=== PATIENT | male | born 1955 | race Caucasian/White ===

== ENCOUNTER → 2017-01-22 | Outpatient (CLI) | payer OTHER ==
--- NOTE | 2017-01-22 08:09 | DIAGNOSTIC IMAGING REPORT ---
ABDOMINAL ULTRASOUND, RIGHT UPPER QUADRANT HISTORY: ELEVATED Amylase, lipase. COMPARISON: None. FINDINGS: Pancreas: The pancreatic head and tail are obscured by overlying bowel gas. The remaining portions of the pancreas are within normal limits. Liver: The liver is echogenic consistent with fatty change. Gallbladder: No gallbladder wall thickening. No gallstones. CBD: 5 mm. Right kidney: No hydronephrosis. A 1.9 cm cyst within the upper pole which demonstrates peripheral calcification. There appears be a small cyst within the lower pole. IMPRESSION: 1. Normal gallbladder. No gallstones. 2. Hepatic steatosis. 3. The pancreas is only partially visualized but appears unremarkable. 4. A 1.9 cm peripherally calcified right renal cyst. Electronically signed by: Elvis Galdamez M.D. 01/22/2017 8:08 AM Dictated Date/Time: 01/22/2017 8:06 AM
== END | disposition home or self-care (01) ==
LOC: C.ULTRBC 07:42
PROVIDERS: ATTEND Family Medicine
DX: R74.8 Abnormal levels of other serum enzymes (principal); K76.0 Fatty (change of) liver, not elsewhere classified; N28.1 Cyst of kidney, acquired

== ENCOUNTER → 2017-04-19 | Outpatient (CLI) | payer OTHER ==
[~2017-04-19] MED LIST: OPTIRAY 320 IV PRN
--- NOTE | 2017-04-19 08:16 | DIAGNOSTIC IMAGING REPORT ---
CT OF THE ABDOMEN WITH AND WITHOUT CONTRAST PANCREAS PROTOCOL CT DOSE: 3200.71 mGy.cm CLINICAL HISTORY: Elevated lipase. TECHNIQUE: Unenhanced, arterial and venous phase imaging of the abdomen was performed. Injection of 91 cc of Optiray 320 IV was uneventful. Oral contrast was administered. COMPARISON STUDY: Right upper quadrant ultrasound January 22, 2017. FINDINGS: Fatty infiltration of the liver is noted. There are no hepatic lesions. There is no biliary or pancreatic ductal dilatation. No pancreatic mass is present. There is no peripancreatic infiltration. There are no peripancreatic fluid collections. The spleen and adrenal glands are normal. There is a with 2 cm cyst within the upper pole of the right kidney. There are a few subcentimeter bilateral renal lesions which are too small to characterize. No abdominal lymphadenopathy is present. Caliber of visualized small and large bowel are normal. IMPRESSION: 1. No acute process within the abdomen. Normal CT appearance of the pancreas. 2. Fatty liver. 3. 2 cm right renal cyst and several subcentimeter renal lesions which are too small to characterize. Electronically signed by: Lalo Sánchez M.D. 04/19/2017 8:15 AM Dictated Date/Time: 04/19/2017 7:59 AM
== END | disposition home or self-care (01) ==
LOC: C.CTS 06:55
PROVIDERS: ATTEND Family Medicine
DX: R74.8 Abnormal levels of other serum enzymes (principal)

== ENCOUNTER 2023-02-19 11:07 | Inpatient (IN) ==
--- NOTE | 2023-02-19 11:39 | Electrocardiogram Report ---
Test Reason : Blood Pressure : / mmHG Vent. Rate : 073 BPM Atrial Rate : 073 BPM P-R Int : 188 ms QRS Dur : 112 ms QT Int : 418 ms P-R-T Axes : 002 -45 091 degrees QTc Int : 460 ms Normal sinus rhythm Left anterior fascicular block Poor R wave progression, consider anterior CO vs. lead placement vs. LVH Abnormal ECG No previous ECGs available Confirmed by Asim Sullivan ([id number]) on 02/19/2023 11:38:53 AM Referred By: Confirmed By:Serafin Sullivan
--- NOTE | 2023-02-19 12:21 | XRay Report ---
XR chest 1V not portable CLINICAL HISTORY: Chest pain, nonspecific TECHNIQUE: Single frontal radiograph of the chest was obtained. Comparison: Comparison is made to chest radiograph 12/28/2022 FINDINGS: No lines and tubes are seen. Cardiomegaly is noted. Faint bibasilar airspace opacities are seen. No e vidence of pleural effusion or pneumothorax. IMPRESSION: Faint bibasilar airspace opacities which may represent atelectasis, pneumonia, and/or aspiration. Mil d cardiomegaly is seen. ACT 112: Negative or not required by law. Electronically signed by: Nahum Guallpa M.D. 02/19/2023 12:20 PM
[2023-02-19 12:36] LABS: Basophils # (auto) 0.02 K/uL (0-0.2); Basophils % (auto) 0.3 %; Eosinophils # (auto) 0.11 K/uL (0-0.50); Eosinophils % (auto) 1.5 %; Hematocrit (blood only) 42.3 % (42.0-52.0); Hemoglobin 14.7 g/dl (14.0-18.0); Immature Granulocytes # (auto) 0.02 K/uL (0.01-0.20); Immature Granulocytes % (auto) 0.3 %; Lymphocytes % (auto) 30.8 %; Mean Corpuscular Hemoglobin 29.6 pg (25.0-34.0); Mean Corpuscular Hgb Conc 34.8 g/dL (32.0-36.0); Mean Corpuscular Volume 85.3 fL (80.0-100.0); Mean Platelet Volume 11.5 fL (9.4-12.4); Monocytes % (auto) 9.4 %; Neutrophils # (auto) 4.32 K/uL (1.40-6.50); Neutrophils % (auto) 57.7 %; Platelet Count 197 K/uL (130-400); RDW Coefficient of Variation 12.7 % (11.5-14.5); RDW Standard Deviation 38.5 fL (36.4-46.3); Red Blood Count 4.96 M/uL (4.70-6.10); White Blood Count 7.47 K/ul (4.8-10.8)
[2023-02-19 12:41] LABS: Albumin Globulin Ratio 1.4 (0.9-2); Albumin Level 4.2 gm/dl (3.4-5.0); BUN Creatinine Ratio 17.1 (10-20); Bilirubin,Total 0.7 mg/dl (0.2-1.0); Calcium 9.1 mg/dl (8.6-10.3); Creatinine Clr Calc Pharmacy 137.5 ml/min; Est GFR (African American) 110.2 ml/min; Est GFR (Non-African American) 95.1 ml/min; Globulin 3.1 gm/dl (2.5-4.0); Potassium 3.6 mmol/L (3.5-5.1); Total Protein 7.3 gm/dl (6.0-8.3)
[2023-02-19 13:01] LABS: INR 1.1 (0.9-1.1); Partial Thromboplastin Ratio 0.9; Prothrombin Time 11.2 Seconds (9.0-12.0)
[2023-02-19 13:15] LABS: Magnesium 1.7 mg/dl (1.7-2.4)
[2023-02-19] MEDS ORDERED: lisinopril 40 MG TAB PO STA (13:16)
--- NOTE | 2023-02-19 13:19 | Emergency Department Note ---
Impression & Plan Dyspnea, Bilateral edema of lower extremity, Symptomatic bradycardia, Hypertension, Hyperglycemia ED Provider Note ED Provider Note NAME: JANES FERGUSON AGE:68 SEX: Male : 1955 ARRIVES VIA: Private vehicle INFORMANT: Patient ED PROVIDER(s): Kasey Jackson DO CHIEF COMPLAINT: Worsening shortness of breath, leg swelling HPI: This is a 68-year-old male presents emergency department due to worsening shortness of breath over the last 6 to 8 weeks, increased leg swelling, despite outpatient evaluation. Patient states his PCP did send him for a stress test when he first began complaining of feeling short of breath which was reported to him as negative. He states he does have high blood pressure. He has been unable to sleep in bed as he cannot lay flat and so he has been sleeping in a recliner. He states he also notices worsening shortness of breath with any exertion. He feels generally speaking his breathing symptoms have all been worsening in the last 6 weeks. He states he has had worsening leg swelling as well. He denies any history of heart problems, denies any history of kidney problems. He states he has been taking his medications as prescribed. He states his family doctor also scheduled him to have a sleep study. PAST MEDICAL HISTORY:See Below PAST SURGICAL HISTORY:See Below FAMILY HISTORY:See Below SOCIAL HISTORY:See Below HOME MEDICATIONS:See Below ALLERGIES:See Below VITALS:See Below PHYSICAL EXAMINATION: GENERAL: alert, well appearing, well nourished, no distress, non-toxic, BMI>48 EYE EXAM: normal conjunctiva, PERRL and EOM's grossly intact OROPHARYNX: no exudate, no erythema, lips, buccal mucosa, and tongue normal and mucous membranes are moist NECK: supple, no nuchal rigidity, no adenopathy, non-tender LUNGS: Clear to auscultation. Normal chest wall mechanics, no w/r/r HEART: no murmurs, S1 normal and S2 normal ABDOMEN: abdomen soft, non-tender, normo-active bowel sounds, no masses, no rebound or guarding. BACK: Back is symmetrical on inspection and there is no deformity, no midline tenderness, no CVA tenderness. SKIN: no rashes, petechiae, orbruising UPPER EXTREMITIES: upper extremities are grossly normal. FROM, nml pulses b/l. LOWER EXTREMITIES: 2+ b/l pitting edema. FROM, nml pulses b/l. NEURO EXAM: Normal sensorium, cranial nerves II-XII grossly intact, normal speech, no facial droop,nogross weakness of arms, no gross weakness of legs. Gross sensation intact. No ataxia. Vital Signs: reviewed and remarkable Differential Diagnosis: CHF, pulmonary edema, LUCIANA, nephrotic syndrome, DVT, lymphedema, electrolyte abnormality, URI, ACS, PE, as well as others were considered MEDICAL DECISION MAKING: This is a 68-year-old male presents to the emergency department due to concern for increased shortness of breath and lower extremity edema. Patient afebrile initial vital signs stable, however when I entered the room patient noted to have bradycardia in the 30s and low 40s. Patient denies any prior cardiac history. Labs drawn and sent, IV established, and serial EKGs performed. Chest x-ray performed and interpreted by me. We were able to obtain records from patient's recent outpatient evaluation including stress test. Chest x-ray here not convincing for pulmonary edema, although patient was recent evolving symptoms suggestive of possible evolving CHF. Patient did not take any of his medications this morning and was noted to be significantly hypertensive. No evidence of LUCIANA on labs. Due to concern for worsening dyspnea and decreased exercise tolerance, symptomatic bradycardia, case discussed with hospitalist for additional evaluation and management. Consultation(s): 1302: Discussed with Dr. Fairbanks, [facility] hospitalist service. ER Treatment Provided: See below Diagnostics Interpreted By Me: -ECG 1: Normal sinus rhythm at 73, leftward axis, normal QRS and QTc, T wave inversions noted in aVL, no other acute ischemic changes EKG 2: Sinus bradycardia at 63 with Arrhythmia noted, left axis deviation, normal QRS and QTc, no acute ischemic changes EKG 3: Sinus bradycardia at 37, leftward axis, normal QRS and QTc, inverted T waves noted in 1, aVL, no other ischemic changes noted -Cardiac Monitoring: An order was placed for continuous cardiac monitoring. The monitor shows a rate of 47 with sinus bradycardia rhythm. -Laboratory studies: As stated above and show below. -Imaging studies: X-ray Chest: A single view study of the chest was reviewed and was negative for cardiomegaly, focal infiltrate, effusion, pulmonary edema, or wide mediastinum. Triage Nursing Note Reviewed Prior/Outside Records Reviewed -outpatient stress test results and office note from PCP reviewed Past Med/Surg History Medical History Hypertension Obesity, morbid, BMI 40.0-49.9 Uncontrolled type 2 diabetes mellitus with hyperglycemia Family History Father Diabetes Pancreatic cancer Mother Hypertension Multiple myeloma Brother Stroke with brain aneurysm Sister Lymphoma Social History Smoking Status: Former smoker Feels Safe at Home: Yes Allergies Allergies Allergy/AdvReac Type Severity Reaction Status Date / Time No Known Allergies Allergy Unverified 01/07/23 13:31 Home Meds Home Medications Medication Instructions Recorded Confirmed insulin glargine 100 unit/mL (3 See Rx Instructions subcut DAILY 12/25/22 02/19/23 mL) subcutaneous pen (Lantus Solostar U-100 Insulin) lisinopril 40 mg tablet 40 mg PO DAILY 12/25/22 02/19/23 propranolol 20 mg tablet 20 mg PO BID 12/25/22 02/19/23 simvastatin 40 mg tablet 40 mg PO HS 12/25/22 02/19/23 aspirin 81 mg chewable tablet 81 mg PO DAILY 01/07/23 02/19/23 multivitamin 1 tab PO DAILY 01/07/23 02/19/23 furosemide 20 mg tablet 10 mg PO DAILY 02/19/23 02/19/23 Previous Rx's Medication Instructions Recorded tirzepatide 2.5 mg/0.5 mL 2.5 mg (0.5 mL) subcut Q7D #4 pens 02/04/23 subcutaneous pen injector (Charleen) Results & Data (ED) Vital Signs Vital Signs - 24 hr 02/19/23 11:07 02/19/23 12:20 02/19/23 12:20 Temperature 36.1 C L Temperature Source Temporal Artery Scan Pulse Rate 75 60 Pulse Rate [Finger] 69 Pulse Rate from SpO2 Sensor Respiratory Rate 20 18 20 Respiratory Effort / Characteristics Non-Labored Spontaneous Respiratory Depth Normal Blood Pressure 224/95 H 229/108 H Blood Pressure [Left Arm] 229/108 H Blood Pressure Mean 138 148 Blood Pressure Mean [Left Arm] 148 Pulse Oximetry 95 95 96 Oxygen Delivery Method Room Air Room Air Sepsis Recent Fever Within 48 Hours No Sepsis New/Unexplained Change in Mental Status No Sepsis Action Taken by Nursing No Action Required 02/19/23 12:20 02/19/23 12:56 02/19/23 12:52 Temperature Temperature Source Pulse Rate 62 70 Pulse Rate [Finger] Pulse Rate from SpO2 Sensor 72 Respiratory Rate 18 Respiratory Effort / Characteristics Respiratory Depth Blood Pressure Blood Pressure [Left Arm] Blood Pressure Mean Blood Pressure Mean [Left Arm] Pulse Oximetry 95 Oxygen Delivery Method Room Air Sepsis Recent Fever Within 48 Hours Sepsis New/Unexplained Change in Mental Status Sepsis Action Taken by Nursing 02/19/23 13:00 02/19/23 13:00 02/19/23 13:10 Temperature Temperature Source Pulse Rate 62 70 Pulse Rate [Finger] Pulse Rate from SpO2 Sensor 65 61 Respiratory Rate 15 22 Respiratory Effort / Characteristics Respiratory Depth Blood Pressure 190/102 H Blood Pressure [Left Arm] Blood Pressure Mean 131 Blood Pressure Mean [Left Arm] Pulse Oximetry 96 96 Oxygen Delivery Method Sepsis Recent Fever Within 48 Hours Sepsis New/Unexplained Change in Mental Status Sepsis Action Taken by Nursing Laboratory Data 02/19/23 11:25 02/19/23 11:25 Lab Results 02/19/23 02/19/23 02/19/23 Range/Units 11:25 11:25 11:25 WBC 7.47 (4.8-10.8) K/ul RBC 4.96 (4.70-6.10) M/uL Hgb 14.7 (14.0-18.0) g/dl Hct 42.3 (42.0-52.0) % MCV 85.3 (80.0-100.0) fL MCH 29.6 (25.0-34.0) pg MCHC 34.8 (32.0-36.0) g/dL RDW Std Deviation 38.5 (36.4-46.3) fL RDW Coeff of Dipesh 12.7 (11.5-14.5) % Plt Count 197 (130-400) K/uL MPV 11.5 (9.4-12.4) fL Immature Gran % (Auto) 0.3 % Neut % (Auto) 57.7 % Lymph % (Auto) 30.8 % [place] % (Auto) 9.4 % Eos % (Auto) 1.5 % Baso % (Auto) 0.3 % Neut # (Auto) 4.32 (1.40-6.50) K/uL Lymph # (Auto) 2.30 (1.2-3.4) K/uL [place] # (Auto) 0.70 H (0.11-0.59) K/uL Eos # (Auto) 0.11 (0-0.50) K/uL Baso # (Auto) 0.02 (0-0.2) K/uL Immature Gran # (Auto) 0.02 (0.01-0.20) K/uL PT 11.2 (9.0-12.0) Seconds INR 1.1 (0.9-1.1) APTT 25.0 (21.0-31.0) Seconds PTT Ratio 0.9 D-Dimer (0-500) ug/L FEU Sodium 139 (136-145) mmol/L Potassium 3.6 (3.5-5.1) mmol/L Chloride 104 (98-107) mmol/L Carbon Dioxide 27 (21-32) mmol/L Anion Gap 8 (3-11) BUN 13 (6-23) mg/dl Creatinine 0.76 (0.6-1.4) mg/dl Est Cr Clr Drug Dosing 137.5 ml/min Est GFR ( Amer) 110.2 ml/min Est GFR (Non-Af Amer) 95.1 ml/min BUN/Creatinine Ratio 17.1 (10-20) Glucose 246 H (70-99(Fasting)) mg/dl Calcium 9.1 (8.6-10.3) mg/dl Magnesium 1.7 (1.7-2.4) mg/dl Total Bilirubin 0.7 (0.2-1.0) mg/dl AST 19 (13-39) U/L ALT 25 (7-52) U/L Alkaline Phosphatase 52 (34-104) U/L Troponin I High Sens 4.0 (0-20) pg/ml B-Natriuretic Peptide (0-100) pg/ml Total Protein 7.3 (6.0-8.3) gm/dl Albumin 4.2 (3.4-5.0) gm/dl Globulin 3.1 (2.5-4.0) gm/dl Albumin/Globulin Ratio 1.4 (0.9-2) TSH (0.300-4.500) uIu/ml Lyme Disease IgG Ab Lyme Disease IgM Ab 02/19/23 02/19/23 02/19/23 Range/Units 11:25 11:25 11:25 WBC (4.8-10.8) K/ul RBC (4.70-6.10) M/uL Hgb (14.0-18.0) g/dl Hct (42.0-52.0) % MCV (80.0-100.0) fL MCH (25.0-34.0) pg MCHC (32.0-36.0) g/dL RDW Std Deviation (36.4-46.3) fL RDW Coeff of Dipesh (11.5-14.5) % Plt Count (130-400) K/uL MPV (9.4-12.4) fL Immature Gran % (Auto) % Neut % (Auto) % Lymph % (Auto) % [place] % (Auto) % Eos % (Auto) % Baso % (Auto) % Neut # (Auto) (1.40-6.50) K/uL Lymph # (Auto) (1.2-3.4) K/uL [place] # (Auto) (0.11-0.59) K/uL Eos # (Auto) (0-0.50) K/uL Baso # (Auto) (0-0.2) K/uL Immature Gran # (Auto) (0.01-0.20) K/uL PT (9.0-12.0) Seconds INR (0.9-1.1) APTT (21.0-31.0) Seconds PTT Ratio D-Dimer (0-500) ug/L FEU Sodium (136-145) mmol/L Potassium (3.5-5.1) mmol/L Chloride (98-107) mmol/L Carbon Dioxide (21-32) mmol/L Anion Gap (3-11) BUN (6-23) mg/dl Creatinine (0.6-1.4) mg/dl Est Cr Clr Drug Dosing ml/min Est GFR ( Amer) ml/min Est GFR (Non-Af Amer) ml/min BUN/Creatinine Ratio (10-20) Glucose (70-99(Fasting)) mg/dl Calcium (8.6-10.3) mg/dl Magnesium (1.7-2.4) mg/dl Total Bilirubin (0.2-1.0) mg/dl AST (13-39) U/L ALT (7-52) U/L Alkaline Phosphatase (34-104) U/L Troponin I High Sens (0-20) pg/ml B-Natriuretic Peptide 182 H (0-100) pg/ml Total Protein (6.0-8.3) gm/dl Albumin (3.4-5.0) gm/dl Globulin (2.5-4.0) gm/dl Albumin/Globulin Ratio (0.9-2) TSH 1.744 (0.300-4.500) uIu/ml Lyme Disease IgG Ab Cancelled Lyme Disease IgM Ab Cancelled 02/19/23 02/19/23 Range/Units 11:25 11:25 WBC (4.8-10.8) K/ul RBC (4.70-6.10) M/uL Hgb (14.0-18.0) g/dl Hct (42.0-52.0) % MCV (80.0-100.0) fL MCH (25.0-34.0) pg MCHC (32.0-36.0) g/dL RDW Std Deviation (36.4-46.3) fL RDW Coeff of Dipesh (11.5-14.5) % Plt Count (130-400) K/uL MPV (9.4-12.4) fL Immature Gran % (Auto) % Neut % (Auto) % Lymph % (Auto) % [place] % (Auto) % Eos % (Auto) % Baso % (Auto) % Neut # (Auto) (1.40-6.50) K/uL Lymph # (Auto) (1.2-3.4) K/uL [place] # (Auto) (0.11-0.59) K/uL Eos # (Auto) (0-0.50) K/uL Baso # (Auto) (0-0.2) K/uL Immature Gran # (Auto) (0.01-0.20) K/uL PT (9.0-12.0) Seconds INR (0.9-1.1) APTT (21.0-31.0) Seconds PTT Ratio D-Dimer 760 H* Cancelled (0-500) ug/L FEU Sodium (136-145) mmol/L Potassium (3.5-5.1) mmol/L Chloride (98-107) mmol/L Carbon Dioxide (21-32) mmol/L Anion Gap (3-11) BUN (6-23) mg/dl Creatinine (0.6-1.4) mg/dl Est Cr Clr Drug Dosing ml/min Est GFR ( Amer) ml/min Est GFR (Non-Af Amer) ml/min BUN/Creatinine Ratio (10-20) Glucose (70-99(Fasting)) mg/dl Calcium (8.6-10.3) mg/dl Magnesium (1.7-2.4) mg/dl Total Bilirubin (0.2-1.0) mg/dl AST (13-39) U/L ALT (7-52) U/L Alkaline Phosphatase (34-104) U/L Troponin I High Sens (0-20) pg/ml B-Natriuretic Peptide (0-100) pg/ml Total Protein (6.0-8.3) gm/dl Albumin (3.4-5.0) gm/dl Globulin (2.5-4.0) gm/dl Albumin/Globulin Ratio (0.9-2) TSH (0.300-4.500) uIu/ml Lyme Disease IgG Ab Lyme Disease IgM Ab Administered Medications Magnesium Sulfate/Dextrose (Magnesium Sulfate / D5w) 1 gm in 100 mls @ 50 mls/hr IV Q2H REJI Stop: 02/19/23 20:29 Last Admin: 02/19/23 17:57 Dose: 50 mls/hr Documented By: KAVON Insulin Aspart (Insulin Aspart Per Unit Charge) 0 units SC ACHS REJI Stop: 03/21/23 16:44 Last Admin: 02/19/23 17:46 Dose: 4 units Documented By: KAVON Co-signed By: OO Discontinued Medications Furosemide (Furosemide 40 Mg/4 Ml Vial) 40 mg IV ONE STA Stop: 02/19/23 13:28 Last Admin: 02/19/23 13:44 Dose: 40 mg Documented By: VON Ioversol (Optiray 320 500ml) 110 ml IV ONCE ONE Stop: 02/19/23 14:13 Last Admin: 02/19/23 14:12 Dose: 110 ml Documented By: JMP Lisinopril (Lisinopril 40 Mg Tab) 40 mg PO ONE STA Stop: 02/19/23 13:17 Last Admin: 02/19/23 13:44 Dose: 40 mg Documented By: VON Potassium Chloride (Potassium Chloride Crtab 20 Meq Tabcr) 20 meq PO NOW STA Stop: 02/19/23 16:24 Last Admin: 02/19/23 17:57 Dose: 20 meq Documented By: MP Imaging Data Radiologist's Impression: Chest X-Ray 02/19/23 11:15 XR chest 1V not portable CLINICAL HISTORY: Chest pain, nonspecific TECHNIQUE: Single frontal radiograph of the chest was obtained. Comparison: Comparison is made to chest radiograph 12/28/2022 FINDINGS: No lines and tubes are seen. Cardiomegaly is noted. Faint bibasilar airspace opacities are seen. No evidence of pleural effusion or pneumothorax. IMPRESSION: Faint bibasilar airspace opacities which may represent atelectasis, pneumonia, and/or aspiration. Mild cardiomegaly is seen. ACT 112: Negative or not required by law. Electronically signed by: Nahum Guallpa M.D. 02/19/2023 12:20 PM Discharge Plan Visit Data Chief Complaint: Shortness of Breath/Dyspnea Stated Complaint: SOB, SWELLING OF FEET ED Provider: Kasey Jackson Discharge Problem: Dyspnea, Bilateral edema of lower extremity, Symptomatic bradycardia, Hypertension, Hyperglycemia Patient Disposition: Admitted As Inpatient Discharge Instructions Interventions: ED Discharge Assessment Last Done: 02/19/23 16:10
--- NOTE | 2023-02-19 13:25 | History & Physical Report ---
Date of Service February 19, 2023 Assessment & Plan (1) Dyspnea: Plan: Shortness of breath likely due to right sided heart failure most likely secondary to undiagnosed obstructive sleep apnea (Vaughn score 15 on outpatient notes) +/- obesity hypoventilation D-Dimer performed to rule out PE, subsequently positive therefore will get CT for PE but anticipate this will be negative given alternative etiology for dyspnea Possible propranolol causing some dyspnea with sinus bradycardia with marked sinus arrhythmia on telemetry - discontinued AV mich blockade Exercise stress echo performed as outpatient - technically difficult and did not quite achieve target HR (suspect due to propranolol) however negative for inducible ischemia (2) Hypervolemia: Plan: Patient is significantly hypervolemic on exam with orthopnea and PND. Suspect mostly right sided heart failure likely from JOSUÉ (CT for PE pending), high water intake, obesity hypoventilation, uncontrolled HTN, bradycardia Outpatient US abdomen - no cirrhosis or ascites Cr normal. Will get UA and protein/cr ratio to assess for renal disease Lasix 40mg IV now then BID17 Fluid restrict 1500ml, Low Na diet Strict I&Os Daily weights (3) Hypertensive urgency: Plan: Secondary to him not taking his medications this morning and hypervolemic state Give his usual lisinopril 40mg PO now then daily Lasix as above Stop propranolol Hydralazine 5mg IV q2h PRN for sBP > 200 (4) Sinus bradycardia: Plan: Discontinue propranolol, monitor on telemetry, if still present off propranolol consider cardiology consult Appears to be recording bradycardia whenever he is having frequent PVCs/PACs. Will aim Mg level > 2 and K > 4. (5) Uncontrolled type 2 diabetes mellitus with hyperglycemia: Plan: Hemoglobin A1C 9.2 in November, no need to repeat this. Planning on starting GLP-1 as outpatient but not yet started this. Could also consider SGLT2 in addition given suspect heart failure and fluid overload as above but will defer this to the outpatient setting. Continue his usual Lantus dosing 40 units QAM and 45 units QPM Novolog: --Goal BSG Range: Low 110 mg/dL, High 140 mg/dL --Correction Factor: 10 mg/dL/unit --Carbohydrate ratio = 3 g/unit --BSGs ACHS if eating, q6h if npo (6) Obesity, morbid, BMI 40.0-49.9: Plan: Consult jd edwards developer Plan VTE Prophylaxis - start Lovenox 40mg SQ BID as long as CT for PE negative Diet - heart healthy, T2DM, Fluid restrict 1500ml, Low Na Disposition - observation status to PCU Admission and Anticipated Discharge Date Admission Date: February 19, 2023 History of Present Illness Chief Complaint: Shortness of breath Primary Care Provider: Elie Hdz DO Lamine Darnell is a 68 year old male who presents to the ER with shortness of breath. He reports this is ongoing getting progressively worse for the last 3-4 weeks. No nasal congestion, fever, chills, sinus pain, cough. Significant orthopnea and paroxysmal nocturnal dyspnea. Associated weight gain of 8lb since beginning of December, leg edema and abdominal distension. No chest pain, palpitations, claudication. His shortness of breath has been somewhat worked up by his PCP with exercise stress echocardiogram on January 12 with no inducible ischemia. More recently switched his HCTZ 12.5mg PO to Lasix 10mg PO with the plan to up titrate this due to concerns for hypervolemia. US abdomen was performed due to abdominal distension and showed no ascites or liver cirrhosis. PCP planning on obstructive sleep apnea testing due to Vaughn score 15. This morning he woke up at 3am not being able to catch his breath and had to sit up. He was so weak just walking up some steps that he decided to come to the ER. His has tried to get him him for the last few weeks. Allergies Allergy/AdvReac Type Severity Reaction Status Date / Time No Known Allergies Allergy Unverified 01/07/23 13:31 Home Medications Medication Instructions Recorded Confirmed Type insulin glargine 100 unit/mL (3 See Rx Instructions subcut DAILY 12/25/22 02/19/23 History mL) subcutaneous pen (Lantus Solostar U-100 Insulin) lisinopril 40 mg tablet 40 mg PO DAILY 12/25/22 02/19/23 History propranolol 20 mg tablet 20 mg PO BID 12/25/22 02/19/23 History simvastatin 40 mg tablet 40 mg PO HS 12/25/22 02/19/23 History aspirin 81 mg chewable tablet 81 mg PO DAILY 01/07/23 02/19/23 History multivitamin 1 tab PO DAILY 01/07/23 02/19/23 History tirzepatide 2.5 mg/0.5 mL 2.5 mg (0.5 mL) subcut Q7D #4 pens 03/09/23 03/24/23 Rx subcutaneous pen injector (Charleen) furosemide 20 mg tablet 10 mg PO DAILY 02/19/23 02/19/23 History Past Med/Surg History Medical History (Updated 02/19/23 @ 14:40 by Bryan Fairbanks MD) Hypertension Obesity, morbid, BMI 40.0-49.9 Uncontrolled type 2 diabetes mellitus with hyperglycemia Family History Father Diabetes Pancreatic cancer Mother Hypertension Multiple myeloma Brother Stroke Sister Lymphoma Social History Smoking Status: Former smoker Feels Safe at Home: Yes Review of Systems Review of Systems: All systems reviewed & are unremarkable except as noted in HPI & below Physical Exam Constitutional: WD/WN, vitals as above Eyes: PERRL, conjunctivae normal, anicteric sclerae Neck: trachea midline, no thyromegaly Respiratory: normal respiratory effort; no respiratory distress Auscultation: + breath sounds absent (bibasal) and + diminished lung sounds (throughout); no crackles, no rales, no rhonchi and no wheezes Cardiovascular: Rate/Rhythm: + bradycardic and + irregularly irregular Heart Sounds: no murmur Vessels: no JVD (difficult to assess given neck size) Extremities: normal capillary refill and + pedal edema (3+ up to abdomen, equal b/l); no calf tenderness Gastrointestinal (Abdomen): Inspection/Auscultation: + abdomen distended and normal bowel sounds Percussion/Palpation: abdomen soft; abdomen nontender, no guarding and abdomen not rigid Musculoskeletal: no cyanosis or clubbing, extremities motor strength 5/5 Skin: no rashes, warm and dry Neurologic: moves all extremities and awake; no focal motor deficits and not confused Psychiatric: A+Ox3, euthymic affect Results & Data Results & Data Vital Signs (Past 12 Hours) Vital Signs Temp Pulse Pulse Resp BP BP Pulse Ox 02/19/23 12:56 62 02/19/23 12:20 02/19/23 12:20 69 20 229/108 H 96 02/19/23 12:20 60 18 229/108 H 95 02/19/23 11:07 36.1 C L 75 20 224/95 H 95 O2 Del Method 02/19/23 12:56 02/19/23 12:20 Room Air 02/19/23 12:20 Room Air 02/19/23 12:20 02/19/23 11:07 Room Air Laboratory Results Abnormal lab results 02/19/23 02/19/23 02/19/23 Range/Units 11:25 11:25 11:25 Powell # (Auto) 0.70 H (0.11-0.59) K/uL D-Dimer (0-500) ug/L FEU Glucose 246 H (70-99(Fasting)) mg/dl B-Natriuretic Peptide 182 H (0-100) pg/ml 02/19/23 Range/Units 11:25 Powell # (Auto) (0.11-0.59) K/uL D-Dimer 760 H* (0-500) ug/L FEU Glucose (70-99(Fasting)) mg/dl B-Natriuretic Peptide (0-100) pg/ml Diagnostic Findings XR chest 1V not portable CLINICAL HISTORY: Chest pain, nonspecific TECHNIQUE: Single frontal radiograph of the chest was obtained. Comparison: Comparison is made to chest radiograph 12/28/2022 FINDINGS: No lines and tubes are seen. Cardiomegaly is noted. Faint bibasilar airspace opacities are seen. No evidence of pleural effusion or pneumothorax. IMPRESSION: Faint bibasilar airspace opacities which may represent atelectasis, pneumonia, and/or aspiration. Mild cardiomegaly is seen. Medications Administered ER Medications Given: None ECG Rate (beats per minute): 73 Rhythm: normal sinus Findings: + other (poor R wave progression) and + LAFB; no PAC or no PVC Comparison ECG Date: no prior available Additional Comments: Subsequent EKGs showing sinus bradycardia with frequent PACs and PVCs Code Status & VTE Plan Code Status Full VTE Prophylaxis Plan VTE Prophylaxis will be ordered: Yes PG Care Time/CCT Total # of Minutes Spent Total Time Spent with Patient: Total time spent is greater than 50% in coordination of care (as documented) at patient's floor/unit and/or counseling patient: Coding Level of Care Code 75766 INT INP/OBS CARE 3/75MIN Diagnoses Dyspnea R06.00 Hypervolemia E87.70 Hypertensive urgency I16.0 Sinus bradycardia R00.1 Uncontrolled type 2 diabetes mellitus with hyperglycemia E11.65 Obesity, morbid, BMI 40.0-49.9 E66.01
[2023-02-19] MEDS ORDERED: FUROSEMIDE 40 MG/4 ML VIAL IV STA (13:27)
[2023-02-19 13:45] LABS: D Dimer 760 ug/L FEU (0-500)
[2023-02-19] MEDS ORDERED: OPTIRAY 320 500ml IV ONE (14:12)
--- NOTE | 2023-02-19 14:47 | CT Scan Report ---
CT angio chest PE protocol CLINICAL HISTORY: PE TECHNIQUE: Multidetector row helical CT of the chest was performed with angiographic protocol. Wheeler l and sagittal reformations were obtained. Coronal and sagittal MIPS were obtained from the axial rustam a set and were submitted for review. Automated dose lowering techniques and/or adjustment according to patient size were utilized for this exam. CT DOSE: 1059.50 mGy.cm Comparison: Comparison is made to CT abdomen pelvis 04/19/2017 FINDINGS: Lungs and pleura: Atelectasis versus scarring is seen in the dependent portions of the lungs. Bronchi al wall thickening is seen. Atelectasis is noted bilaterally. There is a stable 8 mm nodule in the li ngula (series 4 image 164). 4 mm nodule is in the left upper lobe (image 210) and 5 mm nodule in the left upper lobe (image 216). Heart and pericardium: Heart size is normal. No pericardial effusion. Vessels: No evidence of pulmonary embolism. Mediastinum and sunny: Numerous mediastinal nodes measure up to 10 mm. Chest wall and lower neck: Unremarkable. Abdomen: Right renal cyst is seen. Bones: Degenerative changes in the thoracic spine. IMPRESSION: Bilateral atelectasis is seen. Bronchial wall thickening is seen which may represent infectious/infla mmatory airways disease. No pulmonary embolus. ACT 112: Negative or not required by law. Electronically signed by: Nahum Guallpa M.D. 02/19/2023 2:45 PM
[2023-02-19 15:00] LABS: Influenza A virus by PCR Negative (Neg); Influenza B virus by PCR Negative (Neg); RSV by PCR Negative (Neg); SARS CoV2 RNA(COVID-19) Ceph NEGATIVE (Negative)
[2023-02-19] MEDS ORDERED: GLUCOSE 10 TAB/TUBE PO PRN (16:23)
[2023-02-19] MEDS ORDERED: ACETAMINOPHEN 325 MG TAB PO PRN (16:23)
[2023-02-19] MEDS ORDERED: DEXTROSE 50% 50 ML SYRINGE IV PRN (16:23)
[2023-02-19] MEDS ORDERED: POTASSIUM CHLORIDE CRTAB 20 MEQ TABCR PO STA (16:23)
[2023-02-19] MEDS ORDERED: PHARMACY GLYCEMIC MGMT CONSULT PRN (16:23)
[2023-02-19] MEDS ORDERED: hydrALAZINE HCL 20 MG/ML VIAL IV PRN (16:23)
[2023-02-19] MEDS ORDERED: GLUCOSE 40% GEL 15 GM TUBE PO PRN (16:23)
[2023-02-19] MEDS ORDERED: CARBOHYDRATES FOR HYPOGLYCEMIA PO PRN (16:23)
[2023-02-19] MEDS ORDERED: GLUCAGON FOR INJ 1 MG VIAL SQ PRN (16:23)
[2023-02-19 17:02] LABS: Appearance Urine Clear (Clear); Bilirubin Urine Negative (Negative); Blood Urine Negative (Negative); Color Urine Yellow; Glucose Urine UA Negative (Negative); Ketones Urine Negative (Negative); Leukocyte Esterase Urine Negative (Negative); Nitrite Urine Negative (Negative); Protein Urine Negative (Negative); Specific Gravity Urine 1.018 (1.000-1.030); Urobilinogen Urine Negative (Negative)
[2023-02-19 17:06] LABS: Lyme Ab IgG w/WB Rflx Negative (Negative); Lyme Ab IgM w/WB Rflx Negative (Negative)
[2023-02-19 17:18] LABS: Total Protein Urine Random < 4.0 mg/dl (0-11.9)
[2023-02-19 17:29] LABS: Creatinine Urine Random 18.8 mg/dl
[2023-02-19] MEDS: INSULIN ASPART PER UNIT CHARGE SC SCH ×2 (17:46→20:56)
[2023-02-19] MEDS: MAGNESIUM SULFATE / D5W 1 GM/100 ML BAG IV SCH ×2 (17:57→20:36)
--- NOTE | 2023-02-19 20:15 | Electrocardiogram Report ---
Test Reason : Blood Pressure : / mmHG Vent. Rate : 063 BPM Atrial Rate : 063 BPM P-R Int : 180 ms QRS Dur : 098 ms QT Int : 390 ms P-R-T Axes : 000 -31 083 degrees QTc Int : 399 ms Sinus rhythm with frequent Premature ventricular complexes and Premature atrial complexes Left axis deviation Abnormal ECG When compared with ECG of 19-FEB-2023 11:17, Premature ventricular complexes are now Present Premature atrial complexes are now Present QT has shortened Confirmed by Asim Sullivan ([id number]) on 02/19/2023 8:15:25 PM Referred By: SELF Confirmed By:Serafin Sullivan
[2023-02-19] MEDS: ENOXAPARIN INJ 40 MG/0.4 ML SYR SQ SCH (20:37)
[2023-02-19] MEDS: SIMVASTATIN 40 MG TAB PO SCH (20:38)
[2023-02-19] MEDS ORDERED: LANTUS PER UNIT CHARGE SQ SCH (21:00)
[2023-02-20 06:21] LABS: Basophils # (auto) 0.02 K/uL (0-0.2); Basophils % (auto) 0.2 %; Eosinophils # (auto) 0.13 K/uL (0-0.50); Eosinophils % (auto) 1.5 %; Hematocrit (blood only) 43.5 % (42.0-52.0); Hemoglobin 15.1 g/dl (14.0-18.0); Immature Granulocytes # (auto) 0.04 K/uL (0.01-0.20); Immature Granulocytes % (auto) 0.5 %; Lymphocytes # (auto) 2.83 K/uL (1.2-3.4); Lymphocytes % (auto) 33.7 %; Mean Corpuscular Hemoglobin 29.8 pg (25.0-34.0); Mean Corpuscular Hgb Conc 34.7 g/dL (32.0-36.0); Mean Corpuscular Volume 85.8 fL (80.0-100.0); Mean Platelet Volume 11.3 fL (9.4-12.4); Monocytes # (auto) 1.02 K/uL (0.11-0.59); Monocytes % (auto) 12.1 %; Neutrophils # (auto) 4.36 K/uL (1.40-6.50); Platelet Count 201 K/uL (130-400); RDW Coefficient of Variation 12.8 % (11.5-14.5); RDW Standard Deviation 39.2 fL (36.4-46.3); Red Blood Count 5.07 M/uL (4.70-6.10)
[2023-02-20 06:42] LABS: BUN Creatinine Ratio 14.5 (10-20); Calcium 8.9 mg/dl (8.6-10.3); Creatinine Clr Calc Pharmacy 124.2 ml/min; Est GFR (African American) 106.3 ml/min; Est GFR (Non-African American) 91.7 ml/min; Magnesium 2.1 mg/dl (1.7-2.4); Potassium 3.4 mmol/L (3.5-5.1)
[2023-02-20] MEDS: ASPIRIN 81 MG CHEW PO SCH (08:22)
[2023-02-20] MEDS: MULTIVITAMIN TAB PO SCH (08:23)
[2023-02-20] MEDS: lisinopril 40 MG TAB PO SCH (08:23)
[2023-02-20] MEDS: FUROSEMIDE 40 MG/4 ML VIAL IV SCH (08:23)
[2023-02-20] MEDS: ENOXAPARIN INJ 40 MG/0.4 ML SYR SQ SCH ×2 (08:23→20:01)
[2023-02-20] MEDS: INSULIN ASPART PER UNIT CHARGE SC SCH ×4 (08:24→19:50)
[2023-02-20] MEDS: LANTUS PER UNIT CHARGE SQ SCH (08:25)
[2023-02-20] MEDS ORDERED: LANTUS PER UNIT CHARGE SQ SCH (09:00)
[2023-02-20] MEDS ORDERED: NON-FORMULARY MEDICATION (Multivitamin tablet) PO SCH (09:00)
--- NOTE | 2023-02-20 12:19 | Electrocardiogram Report ---
Test Reason : Blood Pressure : / mmHG Vent. Rate : 037 BPM Atrial Rate : 037 BPM P-R Int : 188 ms QRS Dur : 100 ms QT Int : 462 ms P-R-T Axes : 038 -32 091 degrees QTc Int : 362 ms Poor data quality, interpretation may be adversely affected Marked sinus bradycardia Left axis deviation Poor R wave progression, consider anterior ID vs. lead placement vs. LVH Abnormal ECG When compared with ECG of 19-FEB-2023 12:36, (unconfirmed) Premature ventricular complexes are no longer Present Premature atrial complexes are no longer Present Vent. rate has decreased BY 26 BPM T wave amplitude has decreased in Anterior leads Confirmed by Jamie John ([id number]) on 02/20/2023 12:18:50 PM Referred By: SELF Confirmed By:Jamie John
--- NOTE | 2023-02-20 14:28 | Hospitalist Progress Note ---
Date of Service February 20, 2023 Assessment & Plan (1) Dyspnea: Plan: Shortness of breath likely due to right sided heart failure most likely secondary to undiagnosed obstructive sleep apnea ([place] score 15 on outpatient notes) +/- obesity hypoventilation D-Dimer performed to rule out PE, subsequently positive therefore will get CT for PE but anticipate this will be negative given alternative etiology for dyspnea Possible propranolol causing some dyspnea with sinus bradycardia with marked sinus arrhythmia on telemetry - discontinued AV mich blockade Exercise stress echo performed as outpatient - technically difficult and did not quite achieve target HR (suspect due to propranolol) however negative for inducible ischemia ON 02/20 will repeat a limited echo to check his EF will recheck his BMP and BNP will do an overnight pulse oximetry given his risk of sleep apnea unsure as the cause of his dypsnea upon exertion will need a PFT as an outpatient. Unsure if bracyardia is playing a role. GIven his tremors, would he benefit from a pacemaker if no improvement with other treatment for his tremors, will defer this to DR. Hdz Will obtain overnight pulse ox and abg to assess if patient can be discharged home. (2) Hypervolemia: Plan: Patient is significantly hypervolemic on exam with orthopnea and PND. Suspect mostly right sided heart failure likely from JOSUÉ (CT for PE pending), h igh water intake, obesity hypoventilation, uncontrolled HTN, bradycardia Outpatient US abdomen - no cirrhosis or ascites Cr normal. Will get UA and protein/cr ratio to assess for renal disease Lasix 40mg IV now then BID17 Fluid restrict 1500ml, Low Na diet Strict I&Os Daily weights will recheck bmp in AM. switched lasix to once daily (3) Hypertensive urgency: Plan: Secondary to him not taking his medications this morning and hypervolemic state Give his usual lisinopril 40mg PO now then daily Lasix as above Stop propranolol Hydralazine 5mg IV q2h PRN for sBP > 200 (4) Sinus bradycardia: Plan: Discontinue propranolol, monitor on telemetry, if still present off propranolol consider cardiology consult Appears to be recording bradycardia whenever he is having frequent PVCs/PACs. Will aim Mg level > 2 and K > 4. (5) Uncontrolled type 2 diabetes mellitus with hyperglycemia: Plan: Hemoglobin A1C 9.2 in November, no need to repeat this. Planning on starting GLP-1 as outpatient but not yet started this. Could also consider SGLT2 in addition given suspect heart failure and fluid overload as above but will defer this to the outpatient setting. Continue his usual Lantus dosing 40 units QAM and 45 units QPM Novolog: --Goal BSG Range: Low 110 mg/dL, High 140 mg/dL --Correction Factor: 10 mg/dL/unit --Carbohydrate ratio = 3 g/unit --BSGs ACHS if eating, q6h if npo (6) Obesity, morbid, BMI 40.0-49.9: Plan: Consult reports developer Plan VTE Prophylaxis - start Lovenox 40mg SQ BID as long as CT for PE negative Diet - heart healthy, T2DM, Fluid restrict 1500ml, Low Na Disposition - observation status to PCU Admission and Anticipated Discharge Date Admission Date: February 19, 2023 Subjective Patient reports feeling well. He states his leg swelling has improved. His shortness of breath improved as well. Review of Systems Review of Systems: All systems reviewed & are unremarkable except as noted in HPI & below Physical Exam Constitutional: WD/WN, vitals as above Eyes: PERRL, conjunctivae normal, anicteric sclerae Neck: trachea midline, no thyromegaly Respiratory: normal respiratory effort; no respiratory distress Auscultation: + breath sounds absent (bibasal) and + diminished lung sounds (throughout); no crackles, no rales, no rhonchi and no wheezes Cardiovascular: Rate/Rhythm: + bradycardic and + irregularly irregular Heart Sounds: no murmur Vessels: no JVD (difficult to assess given neck size) Extremities: normal capillary refill and + pedal edema (3+ up to abdomen, equal b/l); no calf tenderness Gastrointestinal (Abdomen): Inspection/Auscultation: + abdomen distended and normal bowel sounds Percussion/Palpation: abdomen soft; abdomen nontender, no guarding and abdomen not rigid Musculoskeletal: no cyanosis or clubbing, extremities motor strength 5/5 Skin: no rashes, warm and dry Neurologic: moves all extremities and awake; no focal motor deficits and not confused Psychiatric: A+Ox3, euthymic affect Results & Data Results & Data Vital Signs (Past 12 Hours) Vital Signs Temp Pulse Pulse Resp BP Pulse Ox O2 Del Method 02/20/23 11:39 36.7 C 49 L 18 149/73 H 93 Room Air 02/20/23 11:06 43 L 02/20/23 11:06 Room Air 02/20/23 07:43 36.6 C 47 L 18 167/103 H 94 Room Air 02/20/23 03:52 36.4 C L 44 L 16 158/78 H 97 CPAP 02/20/23 03:24 18 O2 Flow Rate 02/20/23 11:39 02/20/23 11:06 02/20/23 11:06 02/20/23 07:43 02/20/23 03:52 2 02/20/23 03:24 2 PG Care Time/CCT Total # of Minutes Spent Total Time Spent with Patient: Total time spent is greater than 50% in coordination of care (as documented) at patient's floor/unit and/or counseling patient: Coding Level of Care Code 57079 SUB INP/OBS CARE 3/50MIN Diagnoses Dyspnea R06.00 Hypervolemia E87.70 Hypertensive urgency I16.0 Sinus bradycardia R00.1 Uncontrolled type 2 diabetes mellitus with hyperglycemia E11.65 Obesity, morbid, BMI 40.0-49.9 E66.01
--- NOTE | 2023-02-20 14:44 | Pharmacy Report ---
Pharmacy Glycemic Short Note 2 - Date of Service February 20, 2023 - Glycemic Short BSG Results (Last 24 hours): 02/19/23 02/19/23 02/20/23 16:23 20:52 05:40 Glucose 131 H POC Glucose 104 H 115 H 02/20/23 02/20/23 07:25 11:21 Glucose POC Glucose 153 H 156 H OUTPATIENT ANTIDIABETIC REGIMEN: * Lantus 45 units QAM, Lantus 40 units QPM, Tirzepatide ASSESSMENT: * 68 year old admitted with htn urgency, dyspnea, type 2 diabetic. Patient received total of 49 units of insulin yesterday, of which 45 units were basal * Fasting BSG 153 mg/dL - continue with basal 45 units daily. Will continue with novolog based off of total outpatient dose of insulin PLAN FOR INPATIENT GLYCEMIC CONTROL: * Hold outpatient oral diabetes medications * Basal insulin * Lantus 45 units daily * Bolus insulin * NovoLog per scale ACHS or Q6hrs while NPO * Goal Range: Low 110 mg/dL - High 140 mg/dL * Correction Factor: 15 mg/dL/unit * Nutritional / Prandial insulin per carb ratio of 1 unit per 5 grams CHO consumed
[2023-02-20 15:29] LABS: BUN Creatinine Ratio 15.2 (10-20); Calcium 9.4 mg/dl (8.6-10.3); Creatinine Clr Calc Pharmacy 104.1 ml/min; Est GFR (African American) 91.6 ml/min; Potassium 3.5 mmol/L (3.5-5.1)
[2023-02-20] MEDS: SIMVASTATIN 40 MG TAB PO SCH (20:02)
[2023-02-21] MEDS: ENOXAPARIN INJ 40 MG/0.4 ML SYR SQ SCH (08:34)
[2023-02-21] MEDS: lisinopril 40 MG TAB PO SCH (08:34)
[2023-02-21] MEDS: MULTIVITAMIN TAB PO SCH (08:34)
[2023-02-21] MEDS: ASPIRIN 81 MG CHEW PO SCH (08:34)
[2023-02-21] MEDS: INSULIN ASPART PER UNIT CHARGE SC SCH ×2 (08:36→12:18)
[2023-02-21] MEDS: LANTUS PER UNIT CHARGE SQ SCH (08:36)
[2023-02-21 08:53] LABS: Allen Test Pos (Pos); Base Excess ABG 2.8 mEq/L (-9-1.8); HCO3 ABG 27 mmol/L (19-24); Oxygen Saturation ABG 96.9 % (90-95); PCO2 ABG 40 mmHg (35-46); PO2 ABG 76 mmHg (80-95); pH ABG 7.44 (7.35-7.45)
[2023-02-21] MEDS: FUROSEMIDE 40 MG/4 ML VIAL IV SCH (09:21)
[2023-02-21 10:02] LABS: Calcium 9.1 mg/dl (8.6-10.3); Potassium 3.5 mmol/L (3.5-5.1)
[2023-02-21 10:07] LABS: BUN Creatinine Ratio 19.2 (10-20); Creatinine Clr Calc Pharmacy 131.9 ml/min; Est GFR (Non-African American) 94.1 ml/min
[2023-02-21] MEDS ORDERED: POTASSIUM CHLORIDE CRTAB 20 MEQ TABCR PO STA (13:09)
[2023-02-21] MEDS ORDERED: FUROSEMIDE INJ 20 MG/2 ML VIAL IV ONE (13:09)
--- NOTE | 2023-02-21 13:34 | XCELERA ---
[id number] \\[id number]
--- NOTE | 2023-02-21 15:09 | Discharge Summary ---
Date of Service February 21, 2023 Admission HPI Per Admitting Provider Lamine Darnell is a 68 year old male who presents to the ER with shortness of breath. He reports this is ongoing getting progressively worse for the last 3-4 weeks. No nasal congestion, fever, chills, sinus pain, cough. Significant orthopnea and paroxysmal nocturnal dyspnea. Associated weight gain of 8lb since beginning of December, leg edema and abdominal distension. No chest pain, palpitations, claudication. His shortness of breath has been somewhat worked up by his PCP with exercise stress echocardiogram on January 12 with no inducible ischemia. More recently switched his HCTZ 12.5mg PO to Lasix 10mg PO w ith the plan to up titrate this due to concerns for hypervolemia. US abdomen was performed due to abdominal distension and showed no ascites or liver cirrhosis. PCP planning on obstructive sleep apnea testing due to Mayer score 15. This morning he woke up at 3am not being able to catch his breath and had to sit up. He was so weak just walking up some steps that he decided to come to the ER. His has tried to get him him for the last few weeks. Principal Diagnosis SOB on exertion Discharge Exam Constitutional WD/WN, vitals as above Eyes PERRL, conjunctivae normal, anicteric sclerae Neck trachea midline, no thyromegaly Respiratory normal respiratory effort; no respiratory distress Auscultation: lungs clear to auscultation bilaterally; no crackles, no rales, no rhonchi and no wheezes Cardiovascular Rate/Rhythm: + bradycardic Heart Sounds: no murmur Vessels: no JVD (difficult to assess given neck size) Extremities: normal capillary refill and + calf tenderness Gastrointestinal (Abdomen) Inspection/Auscultation: normal bowel sounds Percussion/Palpation: abdomen soft; abdomen nontender, no guarding and abdomen not rigid Musculoskeletal no cyanosis or clubbing, extremities motor strength 5/5 Skin no rashes, warm and dry Neurologic moves all extremities and awake; no focal motor deficits and not confused Psychiatric A+Ox3, euthymic affect Discharge Data Allergies Allergy/AdvReac Type Severity Reaction Status Date / Time No Known Allergies Allergy Unverified 01/07/23 13:31 Consultations 02/19/23 13:14 ED Decision to Admit Stat Ordered Studies 02/19/23 13:48 CT for pulmonary embolism PE [CT angio chest PE protocol] Stat Hospital Course (1) Dyspnea: Shortness of breath likely due to right sided heart failure most likely secondary to undiagnosed obstructive sleep apnea (Mayer score 15 on outpatient notes) +/- obesity hypoventilation D-Dimer performed to rule out PE, subsequently positive therefore will get CT for PE but anticipate this will be negative given alternative etiology for dyspnea Possible propranolol causing some dyspnea with sinus bradycardia with marked sinus arrhythmia on telemetry - discontinued AV mich blockade Exercise stress echo performed as outpatient - technically difficult and did not quite achieve target HR (suspect due to propranolol) however negative for inducible ischemia Hospital course: Patient improved with IV lasix. Patient had aboue 2 doses of IV lasix. Patient may beenfit from increasing his dose to 40 mg every other day. Echocardiogram showed LVH and an elevated EF. Patient may have a component of acue diastolic dysfunction. He had a negative outpatient echo stress, from a cardiac standpoint his workup appears to be complete. He will benefit from a pulmonary function test to further assess his dypsnea on exertion. Patient failed his overnight pulse oximeter with 8 minutes under 88% O2 sat. Patient however, will want to complete his outpatient sleep study to qualify for his CPAP. His ABG did not qualify patient for a BIPAP. Patient may benefit from improving BMI to limit risk of obesity hypoventilatory syndrome. Patient would like to be discharged and will remain on current medication regimen and will discuss further management with his PCP> (2) Hypervolemia: Patient is significantly hypervolemic on exam with orthopnea and PND. Suspect mostly right sided heart failure likely from JOSUÉ (CT for PE pending), high water intake, obesity hypoventilation, uncontrolled HTN, bradycardia Outpatient US abdomen - no cirrhosis or ascites Cr normal. Will get UA and protein/cr ratio to assess for renal disease Lasix 40mg IV now then BID17 Fluid restrict 1500ml, Low Na diet Strict I&Os Daily weights BMP normal at discharge. (3) Hypertensive urgency: Secondary to him not taking his medications this morning and hypervolemic state Give his usual lisinopril 40mg PO now then daily Lasix as above Stop propranolol BP controlled at discharge. (4) Sinus bradycardia: Discontinue propranolol, monitor on telemetry Appears to be recording bradycardia whenever he is having frequent PVCs/PACs. Patient is asymptomatic, will have patient followup with PCP> (5) Uncontrolled type 2 diabetes mellitus with hyperglycemia: Hemoglobin A1C 9.2 in November, no need to repeat this. Planning on starting GLP-1 as outpatient but not yet started this. Could also consider SGLT2 in addition given suspect heart failure and fluid overload as above but will defer this to the outpatient setting. (6) Obesity, morbid, BMI 40.0-49.9: Consult metal [employer] Total Time Total Time Spent Total Time Spent (In Minutes): 32 Discharge Plan Discharge Items Patient Disposition: Home - Self-Care Reason For Visit: HYPERTENSIVE URGENCY, SHORTNESS OF BREATH ON EXERT Discharge Diagnosis: hypertensive urgency, SOB upon exertion Activity: Resume your previous activity Non-emergency contact: Primary Care Provider Call non-emergency contact if: you have any medication questions Follow-up/Referrals: Elie Hdz, [Primary Care Provider] - Diet: Low Sodium (2gm) Addtl Attending Provider Instructions: Good afternoon Mr. Darnell You were evaluated for your Shortness of breath upon exertion. You received lasix IV and your fluid accumulation improved around your belly and legs improved. It would likely be beneficial to have a pulmonary function test, to check to see if your lungs are causing any problem with your breathing. You will likely benefit from increasing your lasix from 10 mg daily to 40 mg every other day, will defer to your PCP: Dr. Hdz. You did not qualify for a BIPAP as your ABG was normal. However you did qualify for home overnight oxygen. This also will be deferred as you would prefer to get a CPAP. Your propranolol will be held as your heart rate is low. Will have you followup with DR. Hdz to discuss other options for your tremors such as primidone. It was a pleasure and I am glad your symptoms improved while you were here. Best regards, Shad Maher Pending Studies at Discharge: No Stand-Alone Forms: My [facility] Shots, Smoking Cessation Medications and DC Order Prescriptions: Continued simvastatin 40 mg tablet 40 mg PO HS lisinopril 40 mg tablet 40 mg PO DAILY insulin glargine [Lantus Solostar U-100 Insulin] 100 unit/mL (3 mL) insulin pen See Rx Instructions subcut DAILY Rx Instructions: Inject 45 units in the AM and 40 units in the PM subcutaneously daily; Mounjaro 2.5 mg/0.5 mL pen injector 2.5 mg subcut Q7D Qty: 4 3RF aspirin 81 mg tablet,chewable 81 mg PO DAILY multivitamin Tablet 1 tab PO DAILY furosemide 20 mg tablet 10 mg PO DAILY Discontinued propranolol 20 mg tablet 20 mg PO BID Discharge Orders: Discharge Order (Routine); Ordered 02/21/23 Ordered By: Shad Maher Admission Data Admit Date/Time: 02/20/23 14:34 Attending Provider: Shad Maher Admit Provider: Bryan Fairbanks Primary Care Provider: Elie Hdz Other Providers: Bryan Fairbanks Coding Level of Care Code 49823 INP/OBS DISCH >30 MIN Diagnoses Dyspnea R06.00 Hypervolemia E87.70 Hypertensive urgency I16.0 Sinus bradycardia R00.1 Uncontrolled type 2 diabetes mellitus with hyperglycemia E11.65 Obesity, morbid, BMI 40.0-49.9 E66.01
[2023-02-21] MEDS ORDERED: INSULIN ASPART PER UNIT CHARGE SC ONE (15:57)
[2023-02-21] MEDS ORDERED: LANTUS PER UNIT CHARGE SQ ONE (15:57)
== END 2023-02-21 15:58 | disposition home or self-care (01) | DRG 292 ==
LOC: 2S 11:07 → ED 11:07 → SUATTDRO 13:19 → 2S 16:10